=== PATIENT | female | born 1975 | race Caucasian/White ===

== ENCOUNTER 2020-08-22 11:59 | Emergency (ER) | payer SELFPAY ==
[2020-08-22] MEDS ORDERED: Benzonatate 100 MG CAP ONE (13:16)
[2020-08-22] MEDS ORDERED: Albuterol 200 PUFF (6.7GM INHALER) ONE (13:16)
[2020-08-22] MEDS ORDERED: Ibuprofen 200 MG TAB ONE (13:16)
--- NOTE | 2020-08-22 19:43 | RAD ---
PORTABLE CHEST: 08/22/20 An AP portable film at 1330 is presented with no prior films available for comparison. There is a sma ll amount of linear streaking in each lung base. Statistically, this is more apt to be atelectasis th an infection, though the latter is not necessarily excluded. The upper lobes are clear. There are no effusions or major lobar consolidations. The heart size is normal. The mediastinum appears normal. IMPRESSION: Minor linear basilar streaking. See comments above. POS: HOME
[2020-08-23 14:49] LABS: SARS-CoV-2 MS2 Positive; SARS-CoV-2 N Gene Negative; SARS-CoV-2 S Gene Negative; SARS-CoV-2 by NAA Not Detected (NotDetected); SARS-CoV-2 orf1ab Negative
== END 2020-08-22 14:34 | disposition home or self-care (01) ==
LOC: BURERS 11:59
DX: B34.9 Viral infection, unspecified (principal); F17.290 Nicotine dependence, other tobacco product, uncomplicated; Z20.828 Contact with and (suspected) exposure to other viral communicable diseases
CPT/HCPCS: 71045; 87081; 87430; 87635; 87804; U0003

== ENCOUNTER 2024-08-17 22:52 | Emergency (ER) | payer OTHER ==
[2024-08-18 00:43] LABS: ALT (SGPT) 43 U/L (8-55); AST (SGOT) 28 U/L (5-34); Albumin 4.7 g/dL (3.5-5.0); Alkaline Phosphatase 119 U/L (40-110); Anion Gap 17 mmol/L (10-20); BUN (Urea Nitrogen) 15 mg/dL (9.8-20.1); Bilirubin, Total 0.4 mg/dL (0.2-1.2); Carbon Dioxide 21 mmol/L (22-29); Chloride 108 mmol/L (98-107); Globulin 2.9 g/dL (2.4-3.5); Glucose 108 mg/dL (70-105); Potassium 3.6 mmol/L (3.5-5.1); Protein, Total 7.6 g/dL (6.0-8.3); Sodium 142 mmol/L (136-145)
[2024-08-18 00:47] LABS: Band 1 % (5-11); Hematocrit 43.5 % (36.0-47.0); Hemoglobin 14.8 g/dL (12.0-16.0); Lymphocytes 20 % (21-51); MDiff Complete? YES; Mean Corpuscular Hemoglobin 33.4 pg (27.0-31.0); Mean Corpuscular Volume 98.4 fl (78.0-98.0); Mean Platelet Volume 5.9 fL (7.4-10.4); Monocytes 1 % (0-10); Neutrophil 78 % (42-75); Platelet Count 367 10x3/uL (130-400); RBC Distribution Width 10.5 % (11.5-14.5); Red Blood Cell (RBC) Count 4.43 mill/uL (4.20-5.40)
[2024-08-18] MEDS ORDERED: Glucagon 1 MG/ML KIT ONE (00:57)
[2024-08-18] MEDS ORDERED: Lorazepam 2 MG/ML VIAL ONE (00:57)
[2024-08-18 01:03] LABS: Calc. Creatinine Clearance 0 mL/min (70-130); Estimated GFR 101
== END 2024-08-18 04:55 | disposition short-term general hospital (02) ==
LOC: BURERS 22:52
DX: T18.128A Food in esophagus causing other injury, initial encounter (principal); F17.290 Nicotine dependence, other tobacco product, uncomplicated; W44.F3XA Food entering into or through a natural orifice, initial encounter
CPT/HCPCS: 70490; 71250; 80053; 85025; 96374; 96375; J1611; J2060